=== PATIENT | female | born 1985 | race Caucasian/White ===

== ENCOUNTER 2017-09-12 21:56 | Emergency (ER) | payer BC ==
[2017-09-12] MEDS ORDERED: Cefdinir 250mg/5 ml* 100 ml ORAL.SUSP PO ONE (22:23)
--- NOTE | 2017-09-12 22:23 | UC ---
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 Started to notice cold/ congestion symptoms that started night. Ear pain started this morning. Reports 'like it feels really full.'" -sudden osnet of significant pain -denies chance of preganncy + URI sx, congested. no sinus pain - History of Current Complaint Chief Complaint: UCEar Stated Complaint: EAR PAIN Time Seen by Provider: 09/12/17 22:13 Hx Last Menstrual Period: 08/27/17 Pain Intensity: 7 - Allergies/Home Medications Allergies/Adverse Reactions: Allergies Allergy/AdvReac Type Severity Reaction Status Date / Time amoxicillin Allergy Hives Verified 09/12/17 22:13 erythromycin base Allergy See Comment Verified 09/12/17 22:13 sulfamethoxazole Allergy Anxiety Verified 09/12/17 22:13 [From Bactrim] trimethoprim [From Bactrim] Allergy Anxiety Verified 09/12/17 22:13 Home Medications: Home Medications Albuterol HFA INHALER* [Ventolin HFA Inhaler*] 1 puff INH Q6H PRN 09/12/17 [ History Confirmed 09/12/17] Cholecalciferol TAB* [Vitamin D TAB*] 2,000 units PO DAILY 09/12/17 [History Confirmed 09/12/17] Fluticasone-Salmeterol 100-50* [Advair Diskus 100-50*] 1 puff INH BID PRN [History Confirmed 09/12/17] Norgestrel-Ethinyl Estradiol [Cryselle-28] 1 tab PO DAILY 09/12/17 [History Confirmed 09/12/17] Sertraline* [Zoloft*] 150 mg PO DAILY 09/12/17 [History Confirmed 09/12/17] PMH/Surg Hx/FS Hx/Imm Hx Previously Healthy: Yes - Surgical History Surgical History: Yes Surgery Procedure, Year, and Place: wisdom teeth. eye surgery during infancy - Family History Known Family History: Positive: Hypertension - Social History Alcohol Use: Rare Substance Use Type: None Smoking Status (MU): Never Smoked Tobacco Review of Systems Constitutional: Negative Skin: Negative Eyes: Negative ENT: Ear Ache, Nasal Discharge Respiratory: Negative Cardiovascular: Negative Gastrointestinal: Negative Genitourinary: Negative Motor: Negative Neurovascular: Negative Musculoskeletal: Negative Neurological: Negative Psychological: Negative Is Patient Immunocompromised?: No All Other Systems Reviewed And Are Negative: Yes Physical Exam Triage Information Reviewed: Yes Appearance: Well-Appearing, No Pain Distress, Well-Nourished - very pleasant Vital Signs: Initial Vital Signs Temp 99.5 F 09/12/17 22:06 Pulse 90 09/12/17 22:06 Resp 20 09/12/17 22:06 BP 147/98 09/12/17 22:06 Pulse Ox 100 09/12/17 22:06 Vital Signs Reviewed: Yes Eye Exam: Normal ENT: Positive: Pharynx normal, Nasal congestion, Nasal drainage, TM bulging, TM dull - left, rt side is nml, TM red. Negative: Sinus tenderness Dental Exam: Normal Neck exam: Normal Neck: Positive: Supple, Nontender, No Lymphadenopathy Respiratory Exam: Normal Respiratory: Positive: Lungs clear, Normal breath sounds, No respiratory distress, No accessory muscle use. Negative: Crackles, Rhonchi, Stridor, Wheezing Cardiovascular Exam: Normal Cardiovascular: Positive: RRR, No Murmur, Pulses Normal Abdomen Description: Positive: Nontender, Soft Musculoskeletal Exam: Normal Neurological Exam: Normal Psychological Exam: Normal Skin Exam: Normal Ear Complaint Course/Dx - Course Course Of Treatment: left OM - treated with 300mgs cefdinir here at in liquid form b/c pills NA. 5 days dispensed here 6 mls po BID x 5 days (250mgs/ 5Mls, # 60 mls per bottle). then 300mgs caps bid x 5 more days sent to pharmacy. -BP elevated d/t significant pain. adv to f/u with PCP. -denies pregancy, recent menses. - Differential Dx/Diagnosis Differential Diagnosis/HQI/PQRI: Otitis Externa, Otitis Media Provider Diagnoses: Left Otitis externa Discharge - Sign-Out/Discharge Documenting (check all that apply): Post-Discharge Follow Up - Discharge Plan Condition: Stable Disposition: HOME Prescriptions: Cefdinir [Cefdinir 300 MG CAP] 300 mg PO BID 5 Days #10 capsule Patient Education Materials: Ear Infection (ED) Referrals: Patricia Huang MD [Primary Care Provider] - Additional Instructions: Make sure to take a probiotic daily while on antibiotics to help prevent a potential complication of antibiotic use called c diff. Some well known brands that can be found OTC are florastor, align and [employer]. Make sure to complete the entire prescription unless advised otherwise by your health care provider. - Billing Disposition and Condition Condition: STABLE Disposition: HOME
== END 2017-09-12 22:41 | disposition home or self-care (01) ==
LOC: UCCORT 21:56
DX: H60.92 Unspecified otitis externa, left ear (principal); Z88.2 Allergy status to sulfonamides; Z88.3 Allergy status to other anti-infective agents
CPT/HCPCS: 99203; G0463

== ENCOUNTER 2018-04-06 07:01 | Emergency (ER) | payer BC ==
--- NOTE | 2018-04-06 07:11 | UC ---
Eye Complaint HPI - HPI Summary HPI Summary: Patient woke this morning with copious yellow secretions from her right eye. Patient denies vision changes but states it's a little blurry when his discharge. Patient able to clean with a washcloth. Patient states her eye is red and itchy. Patient reports tearing. Patient with a you recent URI. 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 Patient does not wear contact lenses. Patient does wear glasses. Patient without history of similar. Patient without any other complaints. Patient's medications reviewed this visit. - History of Current Complaint Stated Complaint: RT EYE CONCERN Hx Obtained From: Patient Hx Last Menstrual Period: 08/27/17 ?: No Onset/Duration: Sudden Onset Timing: Constant - Allergies/Home Medications Allergies/Adverse Reactions: Allergies Allergy/AdvReac Type Severity Reaction Status Date / Time amoxicillin Allergy Hives Verified 04/06/18 07:09 erythromycin base Allergy See Comment Verified 04/06/18 07:09 sulfamethoxazole Allergy Anxiety Verified 04/06/18 07:09 [From Bactrim] trimethoprim [From Bactrim] Allergy Anxiety Verified 04/06/18 07:09 PMH/Surg Hx/FS Hx/Imm Hx Previously Healthy: Yes - Surgical History Surgical History: Yes Surgery Procedure, Year, and Place: wisdom teeth. eye surgery during infancy - Family History Known Family History: Positive: Hypertension - Social History Occupation: Employed Full-time Lives: With Family Alcohol Use: Rare Substance Use Type: None Smoking Status (MU): Never Smoked Tobacco Review of Systems All Other Systems Reviewed And Are Negative: Yes Constitutional: Positive: Negative Skin: Positive: Negative Eyes: Positive: Drainage, Eye Redness ENT: Positive: Negative Respiratory: Positive: Negative Cardiovascular: Positive: Negative Neurological: Positive: Negative Is Patient Immunocompromised?: No Physical Exam - Summary Physical Exam Summary: Vital Signs Reviewed: Yes A+Ox3, no distress Eyes: Conjunctiva injected, ZEYNEP. EOM intact and full, copious yellow discharge right eye, no photophobia, crisp fundoscopic ENT: Hearing grossly normal TM x 2 clear, mmoist, uvula midline, no exudate, no erythema Neck: Positive: Supple Respiratory: Positive: No respiratory distress, No accessory muscle use + CTA throughout no w/r Cardiovascular: RRR nl s1, s2 no m/r CBT <2 sec abd soft + BS nt/nd no guarding, no distension Musculoskeletal Exam: BEDOYA x 4 without difficulty Strength Intact, ROM Intact Neurological: Positive: Alert, + sensation throughout Psychological: Positive: Normal Response To Family Skin: Positive: no rash, no ecchymosis Triage Information Reviewed: Yes Eye Complaint Course/Dx - Course Course Of Treatment: Patient presents with yellow-green discharge from her right eye. Patient states she woke up with it this morning. Patient states it itches and moreira. Patient without any vision changes except for when there some mucus there. Patient had a recent URI that has improved. 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 On exam patient's vital signs with slightly elevated blood pressure recommend follow up PCP. Patient with copious discharge from her right eye as well as injection. Patient without any photophobia. We'll prescribe antibiotic ointment. Polymyxin/bacitracin. Patient given a work for note. Discussed with patient secretion hygiene. Return precautions. Patient comfortable agreement with plan. Call from pharmcy - does not have Polymyxin- bacitracin - has polymyxin-neomyocin - substitued - Differential Dx/Diagnosis Provider Diagnoses: right conjuncitivits Discharge - Sign-Out/Discharge Documenting (check all that apply): Patient Departure All imaging exams completed and their final reports reviewed: No Studies - Discharge Plan Condition: Stable Disposition: HOME Prescriptions: Bacitracin/Polymyxin B Sulfate [Bacitracin-Polymyxin Eye Oint] 1 oin RIGHT EYE TID #1 oin Patient Education Materials: Conjunctivitis (ED) Forms: *Work Release Referrals: Patricia Huang MD [Primary Care Provider] - Additional Instructions: - apply eye ointment to affected every 3 times a day for the next 7 days -apply warm, wet wash cloth to your eye if becomes sticky or crusty - thorough hand washing is important - this is very contagious - after you have been on antibiotics for 24 hours, change your pillowcase - contact your doctor or return with questions or concerns - Billing Disposition and Condition Condition: STABLE Disposition: Home
[2018-04-06 07:15] VITALS: BP 159/87
== END 2018-04-06 07:43 | disposition home or self-care (01) ==
LOC: UCCORT 07:01
DX: H10.9 Unspecified conjunctivitis (principal); Z88.0 Allergy status to penicillin; Z88.1 Allergy status to other antibiotic agents
CPT/HCPCS: 99212; G0463